=== PATIENT | female | born 1960 | race Caucasian/White ===

== ENCOUNTER → 2021-10-12 12:33 | Outpatient (CLI) | payer BC, SELFPAY ==
--- NOTE | ~2021-10-12 | US_ITS ---
EXAMINATION: US pelvic complete w TV DATE: 10/12/2021 13:39 INDICATION: Pelvic and perineal pain TECHNIQUE: Multiple transabdominal and endovaginal sonographic images of the pelvis were obtained. COMPARISON: CT abdomen pelvis 10/15/2011 FINDINGS: Uterus: 5.0 x 1.8 x 3.5 cm. Suggestion of fundal calcifications may be secondary to prior procedure o r involuting fibroid. Endometrial complex measures 0.2 cm. Right Ovary: 1.6 x 0.9 x 1.5 cm. Vascular flow is present. Left Ovary: Mildly limited visualization of the ovary. 1.1 x 0.9 x 0.9 cm. Vascular flow is present b ut arterial waveforms were difficult to visualize. There is no free fluid in the pelvis. IMPRESSION: 1. Somewhat limited visualization of the left ovary. 2. Otherwise unremarkable pelvic sonogram findings. Reviewed, dictated and finalized at location K.
== END ==
PROVIDERS: PCP Internal Medicine; Visit Provider Obstetrics & Gynecology
DX: R10.2 Pelvic and perineal pain (principal)
CPT/HCPCS: 76830; 76856